=== PATIENT | male | born 1995 | race African-American/Black ===

== ENCOUNTER 2017-07-27 12:08 | Emergency (ER) | payer MEDICAID ==
[~2017-07-27] VITALS: Ht 180.3 cm; Wt 86.2 kg
[2017-07-27 12:28] VITALS: BP 150/79
== END 2017-07-27 12:48 | disposition home or self-care (01) ==
LOC: ER 12:08
DX: J02.9 Acute pharyngitis, unspecified (principal)

== ENCOUNTER 2019-04-06 14:43 | Emergency (ER) | payer MEDICAID ==
[~2019-04-06] VITALS: Ht 180.3 cm; Wt 81.6 kg
[2019-04-06 15:54] LABS: Basophils # (auto) 0.1 uL; Basophils % (auto) 0.9 % (0.0-2.0); Eosinophils # (auto) 0.1 uL; Eosinophils % (auto) 1.8 % (0.0-7.0); Hematocrit 47.6 % (41.0-53.0); Hemoglobin 16.1 g/dL (13.5-17.5); Lymphocytes # (auto) 2.2 uL; Lymphocytes % (auto) 32.8 % (10.0-50.0); Mean Corpuscular Hemoglobin 29.9 pg (28.0-32.0); Mean Corpuscular Hgb Conc. 33.8 g/dL (32.0-36.0); Mean Corpuscular Volume 88.4 fL (80.0-100.0); Monocytes # (auto) 0.6 uL; Monocytes % (auto) 8.8 % (0.0-12.0); Neutrophils # (auto) 3.7 uL; Neutrophils % (auto) 55.7 % (37.0-80.0); Nucleated Red Blood Cells % 0.2 %; Platelet Count (auto) 210 10^3/uL (140-450); Red Blood Cells 5.39 10^6/uL (4.5-5.90); Red Cell Distribution Width 13.5 % (11.8-14.3); White Blood Cell 6.7 10^3/uL (4.4-10.8)
[2019-04-06 16:16] LABS: BUN/Creatinine Ratio 12.2; Calcium 9.4 mg/dL (8.5-10.1); Magnesium 2.1 mg/dL (1.6-2.6); Potassium 4.1 mmol/L (3.5-5.1)
[2019-04-06 16:18] LABS: Bilirubin, Total 0.8 mg/dL (0.2-1.0); Total Protein 7.6 g/dL (6.4-8.2)
[2019-04-06 18:56] LABS: INR 1.06 (0.9-1.15); Partial Thromboplastin Time 28.5 sec (23.64-32.05)
[2019-04-06 19:29] LABS: Urine Bacteria NONE SEEN /hpf (None Seen); Urine Blood Negative /uL (Negative); Urine Mucus FEW (None Seen); Urine Specific Gravity 1.027 (1.001-1.035); Urine WBC 3 /hpf (0 - 3)
[2019-04-06 20:30] VITALS: BP 96/66
== END 2019-04-06 20:46 | disposition home or self-care (01) ==
LOC: ER 14:45
DX: M79.10 Myalgia, unspecified site (principal); J45.909 Unspecified asthma, uncomplicated
CPT/HCPCS: 36415; 76705; 80053; 81001; 82150; 83690; 83735; 85025; 85610; 85730